=== PATIENT | female | born 1980 | race Hispanic/Latino ===

== ENCOUNTER 2016-09-01 11:30 | Emergency (ER) | payer OTHER ==
[~2016-09-01] VITALS: Ht 162.6 cm; Wt 55.2 kg
[~2016-09-01 11:30] MED LIST: FEOSOL325 MG PO; KEFLEX500 MG PO; MOTRIN600 MG PO; MOTRIN800 MG PO; PHENERGAN12.5 M1 PO; PHENERGAN25 MG PR; PROMETHAZINE HC25 M1 PO; ULTRAM50 MG PO; VITAMIN B-625 MG PO; ZOFRAN4 MG PO
[2016-09-01 11:44] VITALS: BP 114/65
[2016-09-01 12:14] LABS: HEMATOCRIT 40.8 % (36.0-46.0); MCH 28.4 PG (29.0-34.0); MCHC 34.6 G/DL (30.0-36.0); MCV 82.3 FL (83-99); PLATELET COUNT 228 K/uL (156-360); RBC DIS.WIDTH-CV 12.6 % (11.8-14.6); RBC DIS.WIDTH-SD 37.1 % (39-53); RED BLOOD COUNT 4.96 M/uL (3.80-5.20)
[2016-09-01 12:18] LABS: WHITE BLOOD COUNT 6.4 K/uL (4.1-10.2)
[2016-09-01 12:26] LABS: CHLORIDE 103 mEq/L (99-109); POTASSIUM 4.3 mEq/L (3.7-5.4); SODIUM 138 mEq/L (136-147)
[2016-09-01 12:28] LABS: GLUCOSE 110 mg/dL (70-99)
[2016-09-01 12:29] LABS: ANION GAP 8 MEQ/L (2-14)
[2016-09-01 12:30] LABS: TOTAL BILIRUBIN 0.4 mg/dL (0.0-1.0)
[2016-09-01 12:31] LABS: ALKALINE PHOSPHATASE 33 IU/L (3-129)
[2016-09-01 12:32] LABS: GFR ESTIMATE (CALCULATED) > 59 mL/min/
[2016-09-01 12:33] LABS: UREA NITROGEN (BUN) 9 mg/dL (9-23)
[2016-09-01 12:42] LABS: QUANTITATIVE HCG < 4.0 MIU/ML
== END 2016-09-01 13:10 | disposition left against medical advice (07) ==
LOC: EME 11:30
DX: R11.10 Vomiting, unspecified (principal); R50.9 Fever, unspecified; Z53.21 Procedure and treatment not carried out due to patient leaving prior to being seen by health care provider
CPT/HCPCS: 80053; 81003; 84702; 85027

== ENCOUNTER 2016-09-04 08:21 | Emergency (ER) | payer OTHER ==
[~2016-09-04] VITALS: Ht 162.6 cm; Wt 54.3 kg
[2016-09-04 09:19] LABS: HEMATOCRIT 37.2 % (36.0-46.0); MCH 27.7 PG (29.0-34.0); MCHC 34.1 G/DL (30.0-36.0); MCV 81.2 FL (83-99); MEAN PLAT.VOLUME 9.6 uM^3 (9.5-12.4); PLATELET COUNT 207 K/uL (156-360); RBC DIS.WIDTH-CV 12.2 % (11.8-14.6); RBC DIS.WIDTH-SD 35.3 % (39-53); RED BLOOD COUNT 4.58 M/uL (3.80-5.20); WHITE BLOOD COUNT 5.4 K/uL (4.1-10.2)
[2016-09-04 09:27] LABS: CHLORIDE 103 mEq/L (99-109); POTASSIUM 3.9 mEq/L (3.7-5.4); SODIUM 139 mEq/L (136-147)
[2016-09-04 09:30] LABS: GLUCOSE 113 mg/dL (70-99)
[2016-09-04 09:31] LABS: ANION GAP 9 MEQ/L (2-14)
[2016-09-04 09:32] LABS: TOTAL BILIRUBIN 0.4 mg/dL (0.0-1.0)
[2016-09-04 09:33] LABS: ALKALINE PHOSPHATASE 30 IU/L (3-129); GFR ESTIMATE (CALCULATED) > 59 mL/min/
[2016-09-04 09:34] LABS: UREA NITROGEN (BUN) 11 mg/dL (9-23)
[2016-09-04 09:37] LABS: LIPASE 10 U/L (1.0-51.0)
[2016-09-04 09:41] LABS: ADD MIUA? YES; BILIRUBIN NEGATIVE; BLOOD NEGATIVE; COLOR YELLOW ((YELLOW)); GLUCOSE (STRIP) NEGATIVE; KETONES NEGATIVE; LEUKOCYTES TRACE; NITRITE NEGATIVE; PH, URINE 7.5 (5-8); PROTEIN (STRIP) TRACE; SPECIFIC GRAVITY 1.018 (1.000-1.030)
[2016-09-04 09:42] LABS: QUANTITATIVE HCG < 4.0 MIU/ML
[2016-09-04 09:57] LABS: CASTS NONE SEEN /LPF; EPITHELIAL CELLS 2+; PATHOLOGICAL CAST NONE SEEN; RED BLOOD CELLS 0-5 /HPF (0-5); SMALL ROUND CELL NONE SEEN; UCUL ADDED? NO; WHITE BLOOD CELLS 0-5 /HPF (0-5); YEAST-LIKE CELL NONE SEEN
[2016-09-04 10:09] LABS: BACTERIA 2+; MUCUS 2+
[2016-09-04 10:10] LABS: CRYSTALS NONE SEEN
[2016-09-04] MEDS ORDERED: ULTRAM50 MG PO (12:58)
[2016-09-04] MEDS ORDERED: ZOFRAN4 MG PO (12:58)
[2016-09-04 13:01] VITALS: BP 109/62
== END 2016-09-04 13:52 | disposition home or self-care (01) ==
LOC: EME 08:21
DX: R11.2 Nausea with vomiting, unspecified (principal); R10.9 Unspecified abdominal pain
CPT/HCPCS: 74177; 80053; 81003; 82948; 83690; 84702; 85027; 99281; 99285; J2405; J7030

== ENCOUNTER 2016-11-09 19:25 | Emergency (ER) | payer OTHER ==
[~2016-11-09] VITALS: Ht 162.6 cm; Wt 56.8 kg
[2016-11-09 20:20] LABS: HEMATOCRIT 39.9 % (36.0-46.0); MCH 27.6 PG (29.0-34.0); MCHC 33.3 G/DL (30.0-36.0); MCV 82.8 FL (83-99); MEAN PLAT.VOLUME 9.7 uM^3 (9.5-12.4); PLATELET COUNT 252 K/uL (156-360); RBC DIS.WIDTH-CV 12.2 % (11.8-14.6); RBC DIS.WIDTH-SD 36.9 % (39-53); RED BLOOD COUNT 4.82 M/uL (3.80-5.20); WHITE BLOOD COUNT 12.7 K/uL (4.1-10.2)
[2016-11-09 20:31] LABS: CHLORIDE 102 mEq/L (99-109); POTASSIUM 4.2 mEq/L (3.7-5.4); SODIUM 138 mEq/L (136-147)
[2016-11-09 20:33] LABS: GLUCOSE 122 mg/dL (70-99)
[2016-11-09 20:34] LABS: ANION GAP 11 MEQ/L (2-14)
[2016-11-09 20:35] LABS: TOTAL BILIRUBIN 0.6 mg/dL (0.0-1.0)
[2016-11-09 20:37] LABS: ALKALINE PHOSPHATASE 38 IU/L (3-129); GFR ESTIMATE (CALCULATED) > 59 mL/min/
[2016-11-09 20:38] LABS: UREA NITROGEN (BUN) 15 mg/dL (9-23)
[2016-11-09 20:45] LABS: QUANTITATIVE HCG < 4.0 MIU/ML
[2016-11-09 21:55] LABS: ADD MIUA? YES; BILIRUBIN NEGATIVE; BLOOD NEGATIVE; COLOR YELLOW ((YELLOW)); GLUCOSE (STRIP) NEGATIVE; KETONES NEGATIVE; LEUKOCYTES NEGATIVE; NITRITE NEGATIVE; PROTEIN (STRIP) NEGATIVE; SPECIFIC GRAVITY 1.013 (1.000-1.030); UROBILINOGEN 0.2 MG/DL (0.2-1.0)
[2016-11-09 22:02] LABS: BACTERIA RARE /HPF; EPITHELIAL CELLS 2+ /HPF; MUCUS TRACE /LPF; RED BLOOD CELLS 0-5 /HPF (0-5); UCUL ADDED? NO; WHITE BLOOD CELLS 0-5 /HPF (0-5)
[2016-11-09] MEDS ORDERED: FIORICET,ESG1 TABLET PO (23:45)
[2016-11-10 00:21] VITALS: BP 115/74
== END 2016-11-10 00:25 | disposition home or self-care (01) ==
LOC: EME 19:25
DX: R51 Headache (principal)
CPT/HCPCS: 80053; 81003; 84702; 85027; 99281; 99284; J0780; J1200; J1885; J7030

== ENCOUNTER 2017-08-01 09:12 | Emergency (ER) | payer OTHER ==
[~2017-08-01] VITALS: Ht 162.6 cm; Wt 58.3 kg
[~2017-08-01 09:12] MED LIST changes: +FIORICET,ESG1 TABLET PO
[2017-08-01 09:49] LABS: ADD MIUA? YES; BILIRUBIN NEGATIVE; BLOOD NEGATIVE; COLOR YELLOW ((YELLOW)); GLUCOSE (STRIP) NEGATIVE; KETONES 5; LEUKOCYTES NEGATIVE; NITRITE NEGATIVE; PROTEIN (STRIP) 30; SPECIFIC GRAVITY 1.031 (1.000-1.030)
[2017-08-01 09:54] LABS: HEMATOCRIT 37.2 % (36.0-46.0); MCH 28.3 PG (29.0-34.0); MCHC 34.1 G/DL (30.0-36.0); MEAN PLAT.VOLUME 9.9 uM^3 (9.5-12.4); PLATELET COUNT 247 K/uL (156-360); RBC DIS.WIDTH-SD 36.9 % (39-53); RED BLOOD COUNT 4.48 M/uL (3.80-5.20); WHITE BLOOD COUNT 8.4 K/uL (4.1-10.2)
[2017-08-01 10:06] LABS: BACTERIA RARE /HPF; EPITHELIAL CELLS RARE /HPF; MUCUS 1+ /LPF; RED BLOOD CELLS 0-5 /HPF (0-5); UCUL ADDED? NO; WHITE BLOOD CELLS 0-5 /HPF (0-5)
[2017-08-01 10:07] LABS: CHLORIDE 105 mEq/L (99-109); POTASSIUM 3.9 mEq/L (3.7-5.4); SODIUM 136 mEq/L (136-147)
[2017-08-01 10:08] LABS: GLUCOSE 125 mg/dL (70-99)
[2017-08-01 10:10] LABS: ANION GAP 7 MEQ/L (2-14)
[2017-08-01 10:12] LABS: GFR ESTIMATE (CALCULATED) > 59 mL/min/
[2017-08-01 10:13] LABS: UREA NITROGEN (BUN) 10 mg/dL (9-23)
[2017-08-01 13:26] VITALS: BP 100/52
== END 2017-08-01 13:30 | disposition home or self-care (01) ==
LOC: EME 09:12
PROVIDERS: Nurse Practitioner Family
DX: O30.041 Twin pregnancy, dichorionic/diamniotic, first trimester (principal); R10.12 Left upper quadrant pain; R10.30 Lower abdominal pain, unspecified; Z3A.01 Less than 8 weeks gestation of pregnancy; O24.911 Unspecified diabetes mellitus in pregnancy, first trimester; O99.341 Other mental disorders complicating pregnancy, first trimester; F41.9 Anxiety disorder, unspecified; Z90.49 Acquired absence of other specified parts of digestive tract; Z88.1 Allergy status to other antibiotic agents
CPT/HCPCS: 76801; 76802; 80048; 81003; 84702; 85027; 86900; 86901; 99281; 99285

== ENCOUNTER 2017-08-05 07:36 | Observation (INO) | payer OTHER ==
[~2017-08-05] VITALS: Ht 162.6 cm; Wt 58.6 kg
[2017-08-05 09:22] LABS: EOSINOPHIL (%) 0.8 % (0-5); EOSINOPHIL COUNT 0.1 K/uL (0-0.3); HEMATOCRIT 38.4 % (36.0-46.0); IMMATURE GRANULOCYTE (%) 0.3 % (0.0-0.7); INSTRUMENT ABS NEUTROPHIL CT 6.2 K/uL; LYMPHOCYTE COUNT 2.4 K/uL (1.0-2.8); MCH 28.3 PG (29.0-34.0); MCHC 34.4 G/DL (30.0-36.0); MCV 82.2 FL (83-99); MONOCYTE (%) 6.5 % (3-12); MONOCYTE COUNT 0.6 K/uL (0-0.8); NEUTROPHIL (%) 66.8 % (45-76); NEUTROPHIL COUNT 6.2 K/uL (1.8-6.4); PLATELET COUNT 249 K/uL (156-360); RBC DIS.WIDTH-CV 11.9 % (11.8-14.6); RBC DIS.WIDTH-SD 35.9 % (39-53); RED BLOOD COUNT 4.67 M/uL (3.80-5.20); WHITE BLOOD COUNT 9.3 K/uL (4.1-10.2)
[2017-08-05 09:27] LABS: ADD MIUA? YES; BILIRUBIN NEGATIVE; BLOOD NEGATIVE; COLOR AMBER ((YELLOW)); GLUCOSE (STRIP) NEGATIVE; KETONES 80; LEUKOCYTES NEGATIVE; NITRITE NEGATIVE; PROTEIN (STRIP) 30; SPECIFIC GRAVITY 1.028 (1.000-1.030)
[2017-08-05 09:33] LABS: CHLORIDE 102 mEq/L (99-109); POTASSIUM 3.6 mEq/L (3.7-5.4); SODIUM 138 mEq/L (136-147)
[2017-08-05 09:35] LABS: GLUCOSE 95 mg/dL (70-99)
[2017-08-05 09:36] LABS: ANION GAP 13 MEQ/L (2-14)
[2017-08-05 09:39] LABS: GFR ESTIMATE (CALCULATED) > 59 mL/min/
[2017-08-05 09:40] LABS: UREA NITROGEN (BUN) 12 mg/dL (9-23)
[2017-08-05 09:46] LABS: RED BLOOD CELLS NONE SEEN /HPF (0-5)
[2017-08-05 09:47] LABS: BACTERIA 2+ /HPF; CASTS NONE SEEN /LPF; CRYSTALS NONE SEEN; EPITHELIAL CELLS 2+ /HPF; MUCUS 1+ /LPF
[2017-08-05 10:06] LABS: QUANTITATIVE HCG 72638.6 MIU/ML
[2017-08-05 16:43] VITALS: BP 89/53
[2017-08-05 18:18] LABS: POINT-OF-CARE METER ID UU13113700
[2017-08-05 19:07] LABS: POINT-OF-CARE METER ID UU13113700
[2017-08-05 20:00] VITALS: BP 94/52
[2017-08-05 23:27] VITALS: BP 95/53
[2017-08-06 05:47] LABS: ANION GAP 8 MEQ/L (2-14); CHLORIDE 108 MEQ/L (99-109); GFR ESTIMATE (CALCULATED) > 59 mL/min/; GLUCOSE 82 mg/dL (70-99); POTASSIUM 3.6 MEQ/L (3.7-5.4); SAMPLE HEMOLYSIS CHECK 0; SAMPLE ICTERIC CHECK 0; SAMPLE LIPEMIA CHECK 0; SODIUM 136 MEQ/L (136-147); UREA NITROGEN (BUN) 9 mg/dL (9-23)
[2017-08-06 07:20] VITALS: BP 90/52
[2017-08-06 08:54] LABS: POINT-OF-CARE METER ID UU13113700
[2017-08-06 09:11] LABS: POINT-OF-CARE METER ID UU13113700
[2017-08-06 12:22] VITALS: BP 101/55
[2017-08-06 12:39] LABS: POINT-OF-CARE METER ID UU13113831
[2017-08-06 16:30] VITALS: BP 90/50
[2017-08-06 16:38] VITALS: BP 140/103
[2017-08-06 16:54] LABS: POINT-OF-CARE METER ID UU13113831
[2017-08-06 19:00] VITALS: BP 92/64
[2017-08-06 22:00] LABS: POINT-OF-CARE METER ID UU14162513
[2017-08-06 23:39] VITALS: BP 99/55
[2017-08-07 08:04] VITALS: BP 98/57
[2017-08-07 08:34] LABS: POINT-OF-CARE METER ID UU14162513
[2017-08-07 13:35] LABS: POINT-OF-CARE METER ID UU13113831
[2017-08-07] MEDS ORDERED: VITAMIN B-650 MG PO (14:17)
[2017-08-07] MEDS ORDERED: SLEEP AID25 M1 PO (14:19)
[2017-08-07] MEDS ORDERED: BENADRYL25 MG PO (14:20)
[2017-08-07] MEDS ORDERED: ZOFRAN4 MG PO (14:32)
== END 2017-08-07 16:53 | disposition home or self-care (01) ==
LOC: EME 07:36 → EDOF 13:15 → 5WEST 13:15 → ENRESERV 13:19 → EDOF 13:34 → ENRESERV 16:02 → 5WEST 16:33
PROVIDERS: Emergency Medicine; Internal Medicine
DX: O21.1 Hyperemesis gravidarum with metabolic disturbance (principal); O99.281 Endocrine, nutritional and metabolic diseases complicating pregnancy, first trimester; E86.0 Dehydration; O23.41 Unspecified infection of urinary tract in pregnancy, first trimester; O24.911 Unspecified diabetes mellitus in pregnancy, first trimester; O30.001 Twin pregnancy, unspecified number of placenta and unspecified number of amniotic sacs, first trimester; Z3A.01 Less than 8 weeks gestation of pregnancy; O09.521 Supervision of elderly multigravida, first trimester; Z88.1 Allergy status to other antibiotic agents
CPT/HCPCS: 80048; 81003; 82948; 84702; 85025; 87086; G0378; J0696; J1200; J2405; J7030; J7042; Q0169

== ENCOUNTER → 2017-10-08 | Outpatient (CLI) | payer OTHER ==
[~2017-10-08] MED LIST changes: +BENADRYL25 MG PO; +SLEEP AID25 M1 PO; +VITAMIN B-650 MG PO
== END | disposition home or self-care (01) ==
LOC: CDC 09:30
DX: O09.90 Supervision of high risk pregnancy, unspecified, unspecified trimester (principal); O24.119 Pre-existing type 2 diabetes mellitus, in pregnancy, unspecified trimester; Z3A.00 Weeks of gestation of pregnancy not specified
CPT/HCPCS: 93000

== ENCOUNTER 2018-01-28 10:04 | Outpatient (CLI) | payer OTHER ==
[~2018-01-28] VITALS: Ht 162.6 cm; Wt 71.4 kg
[2018-01-28 10:16] VITALS: BP 108/66
[2018-01-28] MEDS ORDERED: GLYBURIDE5 MG PO ×2 (10:38→10:39)
[2018-01-28] MEDS ORDERED: GLUCAGON1 MG IM (10:39)
[2018-01-28 11:52] LABS: BASOPHIL (%) 0.2 % (0-1); EOSINOPHIL (%) 0.7 % (0-5); EOSINOPHIL COUNT 0.1 K/uL (0-0.3); HEMATOCRIT 39.2 % (36.0-46.0); HEMOGLOBIN 12.7 G/DL (11.9-15.5); IMMATURE GRANULOCYTE (%) 0.4 % (0.0-0.7); LYMPHOCYTE (%) 22.5 % (15-42); LYMPHOCYTE COUNT 1.9 K/uL (1.0-2.8); MCH 27.4 PG (29.0-34.0); MCHC 32.4 G/DL (30.0-36.0); MCV 84.7 FL (83-99); MONOCYTE (%) 4.4 % (3-12); MONOCYTE COUNT 0.4 K/uL (0-0.8); NEUTROPHIL (%) 71.8 % (45-76); NEUTROPHIL COUNT 6.2 K/uL (1.8-6.4); PLATELET COUNT 267 K/uL (156-360); RBC DIS.WIDTH-CV 12.9 % (11.8-14.6); RBC DIS.WIDTH-SD 39.7 % (39-53); RED BLOOD COUNT 4.63 M/uL (3.80-5.20); WHITE BLOOD COUNT 8.6 K/uL (4.1-10.2)
[2018-01-28 12:03] LABS: BILIRUBIN NEGATIVE; BLOOD NEGATIVE; COLOR YELLOW ((YELLOW)); GLUCOSE (STRIP) >=500; KETONES NEGATIVE; LEUKOCYTES NEGATIVE; NITRITE NEGATIVE; PROTEIN (STRIP) 30
[2018-01-28 12:05] LABS: APPEARANCE CLEAR ((CLEAR)); UCUL ADDED? NO
[2018-01-28 12:16] LABS: AMPHETAMINE NEGATIVE (500 ng/mL); BARBITURATES NEGATIVE (200 ng/mL); BENZODIAZEPINES NEGATIVE (150 ng/mL); BUPRENORPHINE NEGATIVE (10 ng/mL); COCAINE NEGATIVE (150 ng/mL); METHADONE NEGATIVE (200 ng/mL); METHAMPHETAMINE NEGATIVE (500 ng/mL); OPIATES (MORPHINE) NEGATIVE (100 ng/mL); OXYCODONE NEGATIVE (100 ng/mL); PHENCYCLIDINE NEGATIVE (25 ng/mL); PROPOXYPHENE NEGATIVE (300 ng/mL); THC CANNABINOIDS NEGATIVE (50 ng/mL); TRICYCLIC ANTIDEPRESSANTS NEGATIVE (300 ng/mL)
[2018-01-28 12:53] LABS: ALBUMIN 3.7 G/DL (3.2-4.8); ALKALINE PHOSPHATASE 80 IU/L (3-129); ALT (GPT) 23 IU/L (3-49); AST (GOT) 17 IU/L (2-34); CHLORIDE 103 MEQ/L (99-109); CREATININE 0.6 MG/DL (0.6-1.3); GFR ESTIMATE (CALCULATED) > 59 mL/min/; GLUCOSE 87 mg/dL (70-99); POTASSIUM 3.8 MEQ/L (3.7-5.4); SODIUM 135 MEQ/L (136-147); TOTAL BILIRUBIN 0.4 MG/DL (0.0-1.0); TOTAL PROTEIN 7.8 G/DL (6.4-8.3); UREA NITROGEN (BUN) 8 mg/dL (9-23)
[2018-01-28 13:09] VITALS: BP 110/63
[2018-01-28 15:08] LABS: SOURCE URINE
[2018-01-28 17:08] VITALS: BP 104/66
[2018-01-28 17:37] LABS: CANDIDA DNA PROBE NEGATIVE; GARDNERELLA DNA PROBE NEGATIVE; TRICHOMONAS DNA PROBE NEGATIVE
[2018-01-28 19:37] VITALS: BP 109/69
[2018-01-28 22:09] VITALS: BP 107/63
[2018-01-29] VITALS (7 sets, daily range): BP systolic 99–112; BP diastolic 56–61
[2018-01-29 13:35] LABS: CHLAMYDIA TRACHOMATIS NEGATIVE; NEISSERIA GONORRHOEAE NEGATIVE
[2018-01-30 03:02] VITALS: BP 89/51
[2018-01-30 07:11] VITALS: BP 107/63
[2018-01-30] MEDS ORDERED: NOVOLIN N100 UNITS/ SC (07:18)
[2018-01-30] MEDS ORDERED: NOVOLOG 10100 UNITS/ SC (07:18)
[2018-01-30] MEDS ORDERED: [UNRECOGNIZED DRUG - OTHER] MC (07:24)
[2018-01-30] MEDS ORDERED: NOVOLOG PE100 UNITS/ SC (07:24)
[2018-01-30 19:24] VITALS: BP 105/57
[2018-01-30 22:18] VITALS: BP 103/57
[2018-01-31 02:44] VITALS: BP 104/60
[2018-01-31 12:49] VITALS: BP 92/53
[2018-01-31 20:09] VITALS: BP 96/54
[2018-01-31 22:12] VITALS: BP 103/59
[2018-02-01 01:16] VITALS: BP 91/55
[2018-02-01 06:00] VITALS: BP 101/59
[2018-02-01 08:42] VITALS: BP 102/60
[2018-02-01 13:08] VITALS: BP 108/59
[2018-02-01] MEDS ORDERED: NOVOLOG 10100 UNITS/ SC ×2 (17:37)
[2018-02-01] MEDS ORDERED: NOVOLOG PE100 UNITS/ SC (17:37)
[2018-02-01] MEDS ORDERED: NOVOLIN N100 UNITS/ SC (17:37)
== END 2018-02-01 18:30 | disposition home or self-care (01) ==
LOC: LDRP-OP 10:04 → 2WEST 10:05 → LDRP-OP 04-20 11:47
PROVIDERS: Obstetrics & Gynecology
DX: O24.113 Pre-existing type 2 diabetes mellitus, in pregnancy, third trimester (principal); E11.65 Type 2 diabetes mellitus with hyperglycemia; O99.613 Diseases of the digestive system complicating pregnancy, third trimester; K11.7 Disturbances of salivary secretion; O60.03 Preterm labor without delivery, third trimester; O31.23X0 Continuing pregnancy after intrauterine death of one fetus or more, third trimester, not applicable or unspecified; O09.523 Supervision of elderly multigravida, third trimester; O99.343 Other mental disorders complicating pregnancy, third trimester; F32.9 Major depressive disorder, single episode, unspecified; F41.9 Anxiety disorder, unspecified; O98.513 Other viral diseases complicating pregnancy, third trimester; B00.9 Herpesviral infection, unspecified; Z79.84 Long term (current) use of oral hypoglycemic drugs; Z87.891 Personal history of nicotine dependence; Z88.1 Allergy status to other antibiotic agents; Z88.2 Allergy status to sulfonamides; Z83.3 Family history of diabetes mellitus; Z3A.31 31 weeks gestation of pregnancy
CPT/HCPCS: 59025; 76818; 80053; 81003; 82731; 82948; 85025; 87480; 87491; 87510; 87591; 87660; G0378; J1815; J2405; J7040

== ENCOUNTER 2018-03-03 15:16 | Inpatient (IN) | payer OTHER ==
[~2018-03-03 15:16] MED LIST changes: +GLUCAGON1 MG IM; +GLYBURIDE5 MG PO; +NOVOLIN N100 UNITS/ SC; +NOVOLOG 10100 UNITS/ SC; +NOVOLOG PE100 UNITS/ SC; +[UNRECOGNIZED DRUG - OTHER] MC
[2018-03-03 15:32] VITALS: BP 112/69
[2018-03-03] MEDS ORDERED: HUMULIN N100 UNITS/ SC (15:45)
[2018-03-03] MEDS ORDERED: NOVOLOG 10100 UNITS/ SC ×3 (15:46→15:47)
[2018-03-03 16:32] LABS: BASOPHIL (%) 0.1 % (0-1); EOSINOPHIL (%) 0.9 % (0-5); EOSINOPHIL COUNT 0.1 K/uL (0-0.3); HEMATOCRIT 33.8 % (36.0-46.0); HEMOGLOBIN 11.4 G/DL (11.9-15.5); IMMATURE GRANULOCYTE (%) 0.5 % (0.0-0.7); LYMPHOCYTE (%) 19.4 % (15-42); LYMPHOCYTE COUNT 1.8 K/uL (1.0-2.8); MCH 28.4 PG (29.0-34.0); MCHC 33.7 G/DL (30.0-36.0); MCV 84.1 FL (83-99); MONOCYTE (%) 5.5 % (3-12); MONOCYTE COUNT 0.5 K/uL (0-0.8); NEUTROPHIL (%) 73.6 % (45-76); NEUTROPHIL COUNT 6.9 K/uL (1.8-6.4); PLATELET COUNT 262 K/uL (156-360); RBC DIS.WIDTH-CV 13.4 % (11.8-14.6); RBC DIS.WIDTH-SD 41.4 % (39-53); RED BLOOD COUNT 4.02 M/uL (3.80-5.20); WHITE BLOOD COUNT 9.3 K/uL (4.1-10.2)
[2018-03-03 16:40] LABS: ALBUMIN 3.3 g/dL (3.2-4.8); CHLORIDE 102 mEq/L (99-109); SODIUM 136 mEq/L (136-147)
[2018-03-03 16:42] LABS: GLUCOSE 130 mg/dL (70-99)
[2018-03-03 16:43] LABS: TOTAL PROTEIN 6.7 g/dL (6.4-8.3)
[2018-03-03 16:44] LABS: TOTAL BILIRUBIN 0.4 mg/dL (0.0-1.0)
[2018-03-03 16:46] LABS: ALKALINE PHOSPHATASE 96 IU/L (3-129); CREATININE 0.7 mg/dL (0.6-1.3); GFR ESTIMATE (CALCULATED) > 59 mL/min/
[2018-03-03 16:47] LABS: UREA NITROGEN (BUN) 9 mg/dL (9-23)
[2018-03-03 16:48] LABS: AST (GOT) 14 IU/L (2-34)
[2018-03-03 16:49] LABS: ALT (GPT) 11 IU/L (3-49)
[2018-03-03 17:30] LABS: AMPHETAMINE NEGATIVE (500 ng/mL); BARBITURATES NEGATIVE (200 ng/mL); BENZODIAZEPINES NEGATIVE (150 ng/mL); BUPRENORPHINE NEGATIVE (10 ng/mL); COCAINE NEGATIVE (150 ng/mL); METHADONE NEGATIVE (200 ng/mL); METHAMPHETAMINE NEGATIVE (500 ng/mL); OPIATES (MORPHINE) NEGATIVE (100 ng/mL); OXYCODONE NEGATIVE (100 ng/mL); PHENCYCLIDINE NEGATIVE (25 ng/mL); PROPOXYPHENE NEGATIVE (300 ng/mL); THC CANNABINOIDS NEGATIVE (50 ng/mL); TRICYCLIC ANTIDEPRESSANTS NEGATIVE (300 ng/mL)
[2018-03-03 17:54] LABS: GROUP B STREP POSITIVE (NEGATIVE)
[2018-03-03 21:34] VITALS: BP 99/57
[2018-03-03 22:05] VITALS: BP 103/60
[2018-03-03 22:34] VITALS: BP 102/62
[2018-03-03 23:04] VITALS: BP 103/58
[2018-03-03 23:35] VITALS: BP 105/59
[2018-03-04] VITALS (9 sets, daily range): BP systolic 93–116; BP diastolic 52–70
[2018-03-05 07:53] LABS: BASOPHIL (%) 0.3 % (0-1); EOSINOPHIL (%) 1.2 % (0-5); EOSINOPHIL COUNT 0.1 K/uL (0-0.3); HEMATOCRIT 34.9 % (36.0-46.0); HEMOGLOBIN 11.5 G/DL (11.9-15.5); IMMATURE GRANULOCYTE (%) 0.7 % (0.0-0.7); LYMPHOCYTE (%) 21.8 % (15-42); LYMPHOCYTE COUNT 2.4 K/uL (1.0-2.8); MCV 85.1 FL (83-99); MONOCYTE (%) 5.3 % (3-12); MONOCYTE COUNT 0.6 K/uL (0-0.8); NEUTROPHIL (%) 70.7 % (45-76); NEUTROPHIL COUNT 7.6 K/uL (1.8-6.4); PLATELET COUNT 264 K/uL (156-360); RBC DIS.WIDTH-SD 43.2 % (39-53); WHITE BLOOD COUNT 10.8 K/uL (4.1-10.2)
[2018-03-05 07:58] VITALS: BP 111/65
[2018-03-05 15:05] VITALS: BP 91/52
[2018-03-05 22:39] VITALS: BP 113/67
[2018-03-06 07:33] VITALS: BP 109/66
[2018-03-06] MEDS ORDERED: GLIPIZIDE5 MG PO (07:43)
[2018-03-06] MEDS ORDERED: IBUPROFEN800 MG PO (07:43)
== END 2018-03-06 12:48 | disposition home or self-care (01) | DRG 774 ==
LOC: LDRP-OP 15:16 → 2WEST 15:23 → LDRP-OP 04-20 20:02
PROVIDERS: Advanced Practice Midwife; Obstetrics & Gynecology
DX: O24.12 Pre-existing type 2 diabetes mellitus, in childbirth (principal); O36.8130 Decreased fetal movements, third trimester, not applicable or unspecified; O36.4XX2 Maternal care for intrauterine death, fetus 2; E11.65 Type 2 diabetes mellitus with hyperglycemia; Z3A.36 36 weeks gestation of pregnancy; Z79.84 Long term (current) use of oral hypoglycemic drugs; O99.824 Streptococcus B carrier state complicating childbirth; Z37.0 Single live birth
CPT/HCPCS: 80053; 82948; 85025; 86850; 86900; 86901; 87081; 87653; G0378; J0595; J0702; J1815; J2540; J7030